=== PATIENT | male | born 1995 | race Two or more races ===

== ENCOUNTER 2017-01-19 20:56 | Emergency (ER) | payer OTHER ==
[2017-01-19 22:05] VITALS: BP 135/46; PULSE 85; TEMP 98.3; BMI 25.8
--- NOTE | 2017-01-19 23:35 | PDOC ---
History of Present Illness - General History Source: Patient Exam Limitations: No Limitations - History of Present Illness Initial Comments: 01/19/17 23:42 The patient is a 21 year old male with no significant past medical history who presents to the ED with right ankle pain and swelling s/p mechanical fall earlier today. Patient reports around 11am, he was stepping into a SUV when he slipped and fell, landing on his right side. States he sustained pain and swelling to his right ankle. Patient rates his pain as a 3/10. He is still able to bear weight. He did not take any pain medications for his pain, but he applied a muscle spray with slight improvement. The patient denies fever, chills, cough, SOB, chest pain, and palpitations. The patient denies abdominal pain, nausea, vomiting, and diarrhea. <Bee Dickerson - Last Filed: 01/20/17 00:07> - General History Source: Patient <Gabriele Barros - Last Filed: 01/20/17 02:32> - General Chief Complaint: Bone Injury Stated Complaint: RT JOINT INJURY Time Seen by Provider: 01/19/17 23:18 Past History <Bee Dickerson - Last Filed: 01/20/17 00:07> - Psycho/Social/Smoking Cessation Hx Suicidal Ideation: No Smoking History: Never smoked Have you smoked in the past 12 months: No Information on smoking cessation initiated: No Hx Alcohol Use: No Drug/Substance Use Hx: No <Gabriele Barros - Last Filed: 01/20/17 02:32> - Past Medical History Allergies/Adverse Reactions: Allergies Allergy/AdvReac Type Severity Reaction Status Date / Time No Known Allergies Allergy Verified 01/19/17 22:02 Home Medications: Ambulatory Orders Ibuprofen 800 mg PO TID #30 tablet 01/20/17 Review of Systems - Review of Systems Able to Perform ROS?: Yes Comments:: 01/19/17 23:42 CONSTITUTIONAL: Absent: fever, no chills, no fatigue EYES: Absent: visual changes ENT: Absent: ear pain, no sore throat CARDIOVASCULAR: Absent: chest pain, no palpitations RESPIRATORY: Absent: cough, no SOB GI: Absent: abdominal pain, no nausea, no vomiting, no constipation, no diarrhea GENITOURINARY: Absent: dysuria, no frequency, no hematuria MUSCULOSKELETAL: +right ankle pain and swelling Absent: back pain, no myalgia SKIN: Absent: rash NEURO: Absent: headache <Bee Dickerson - Last Filed: 01/20/17 00:07> *Physical Exam - Vital Signs Last Vital Signs Temp Pulse Resp BP Pulse Ox 98.3 F 85 14 135/46 97 01/19/17 22:02 01/19/17 22:02 01/19/17 22:02 01/19/17 22:02 01/19/17 22:02 - Physical Exam Comments: 01/20/17 00:07 GENERAL: Well-appearing, well-nourished. No apparent distress. HEENT: Normocephalic, atraumatic. PERRL, EOM intact. CARDIOVASCULAR: Normal S1, S2. Regular rate and rhythm. PULMONARY: Clear to auscultation bilaterally. ABDOMEN: Soft, non-distended, non-tender. EXTREMITIES: Limited ROM of right ankle secondary to pain. Right ankle edema. Tenderness to palpation at the lateral aspect of the right ankle. 2+ dorsalis pulses bilaterally. No gross deformity. SKIN: Warm, dry. No rash NEUROLOGICAL: No focal neurological deficits. <Bee Dickerson - Last Filed: 01/20/17 00:07> - Vital Signs Last Vital Signs Temp Pulse Resp BP Pulse Ox 98.3 F 85 14 135/46 97 01/19/17 22:02 01/19/17 22:02 01/19/17 22:02 01/19/17 22:02 01/19/17 22:02 <Gabriele Barros - Last Filed: 01/20/17 02:32> Medical Decision Making - Medical Decision Making 01/20/17 02:24 Dr. Barros: The scribe's documentation has been prepared under my direction and personally reviewed by me in its entirery. I confirm that the note above accurately reflects all work, treatment, procedures, and medical decision making performed by me. <Gabriele Barros - Last Filed: 01/20/17 02:32> *DC/Admit/Observation/Transfer - Attestations Scribe Attestion: 01/19/17 23:42 Documentation prepared by Bee Dickerson, acting as biomedical equipment specialist for Gabriele Barros MD/DO. <Bee Dickerson - Last Filed: 01/20/17 00:07> - Discharge Dispostion Admit: No <Gabriele Barros - Last Filed: 01/20/17 02:32> Diagnosis at time of Disposition: Ankle sprain Qualifiers: Encounter type: initial encounter Involved ligament of ankle: unspecified ligament Laterality: right Qualified Code(s): S93.401A - Sprain of unspecified ligament of right ankle, initial encounter - Discharge Dispostion Disposition: HOME Condition at time of disposition: Stable - Referrals Referrals: Demario Canseco MD [Staff Physician] - - Patient Instructions Printed Discharge Instructions: How to Use Crutches, DI for Ankle Sprain
[2017-01-19] MEDS ORDERED: IBUPROFEN 400 MG TABLET (FP) PO ONE ×2 (23:36→23:46)
== END 2017-01-20 02:51 | disposition home or self-care (01) ==
LOC: JER 20:56
DX: S93.401A Sprain of unspecified ligament of right ankle, initial encounter (principal); V48.4XXA Person boarding or alighting a car injured in noncollision transport accident, initial encounter; Y92.488 Other paved roadways as the place of occurrence of the external cause; Y93.89 Activity, other specified
CPT/HCPCS: 73610-TC-RT; 73630-TC-RT; 99283-25